=== PATIENT | female | born 1935 | race Caucasian/White ===

== ENCOUNTER 2017-03-15 13:39 | Day surgery (SDC) | payer MEDICARE, BC ==
[~2017-03-15] VITALS: Ht 152.4 cm; Wt 101.8 kg
[~2017-03-15 13:39] MED LIST: LIDOCAINE 1%/EPI 1:100,000 20 ML VIAL. ONE
[2017-03-15] MEDS ORDERED: IV RINGERS,LACTATED 1000ML 1,000 ML IV SCH (13:47)
[2017-03-15] MEDS ORDERED: FURO-69 PO (13:52)
[2017-03-15] MEDS ORDERED: POTA20TA82 PO (13:53)
[2017-03-15] MEDS ORDERED: WARF2TAB7 PO (13:53)
[2017-03-15] MEDS ORDERED: HYDR-971 PO (13:54)
[2017-03-15] MEDS ORDERED: INSU100I13 SQ (13:54)
[2017-03-15] MEDS ORDERED: CARV12.52 PO (13:55)
[2017-03-15] MEDS ORDERED: LEVO100T5 PO (13:55)
[2017-03-15] MEDS ORDERED: HYDR12.53 PO (13:55)
[2017-03-15] MEDS ORDERED: CRESTOR10 MG PO (13:56)
[2017-03-15] MEDS ORDERED: CITA10TA8 PO (13:56)
[2017-03-15] MEDS ORDERED: OMEP20TA63 PO (13:57)
[2017-03-15] MEDS ORDERED: LIDOCAINE 1% 1 ML SYRINGE. ID PRN (14:00)
[2017-03-15] MEDS ORDERED: MIDAZOLAM HCL/PF 2 MG/2 ML VIAL. IV PRN (14:00)
[2017-03-15] MEDS ORDERED: fentaNYL PF VIAL 100 MCG/2 ML VIAL IV PRN ×2 (14:00)
[2017-03-15] MEDS ORDERED: CLINDAMYCIN 600MG PREMIX 50 ML IV PRN (14:15)
[2017-03-15 14:47] LABS: BASO # 0.1 x10^3/uL (0.0-0.2); BASO % 1 % (0-3); EOS % 2 % (0-3); HEMATOCRIT 44.4 % (36.0-47.0); HEMOGLOBIN 14.6 g/dL (12.0-15.5); LYMPH # 1.8 x10^3/uL (1.0-4.8); LYMPH % 17 % (24-48); MEAN CORPUSCULAR HEMOGLOBIN 32 pg (25-35); MEAN CORPUSCULAR HGB CONC 33 g/dL (31-37); MEAN CORPUSCULAR VOLUME 97 fL (79-100); MONO % 8 % (0-9); NEUT % 73 % (31-73); PLATELET COUNT 215 x10^3/uL (140-400); RED BLOOD COUNT 4.59 x10^6/uL (3.50-5.40); RED CELL DISTRIBUTION WIDTH 14.1 % (11.5-14.5); WHITE BLOOD COUNT 10.5 x10^3/uL (4.0-11.0)
[2017-03-15 14:56] LABS: INR 2.8 (0.8-1.1); PROTHROMBIN TIME PATIENT 27.7 SEC (11.7-14.0)
[2017-03-15] MEDS ORDERED: CHLORHEXIDINE 0.12% 15 ML MOUTHWASH. SWSP ONE (15:00)
[2017-03-15] MEDS ORDERED: GELATIN SPONGE SIZE 12-7MM SPONGE. ONE (15:03)
[2017-03-15] MEDS ORDERED: BUPIVAC MPF-EPI 0.5%-1:200000 30 ML VIAL. ONE (15:03)
[2017-03-15] MEDS ORDERED: LIDOCAINE 1%/EPI 1:100,000 20 ML VIAL. ONE (15:03)
[2017-03-15 15:05] LABS: CALCIUM 9.2 mg/dL (8.5-10.1); CREATININE 1.4 mg/dL (0.6-1.0); GFR 35.9; POTASSIUM 4.3 mmol/L (3.5-5.1)
[2017-03-15] MEDS ORDERED: LIDOCAINE 2% PF Vial for OR 5 ML VIAL. ONE (16:39)
[2017-03-15] MEDS ORDERED: PROPOFOL 20 ML IV ONE ×2 (16:39→18:07)
--- NOTE | 2017-03-15 18:39 | PDOC ---
BRIEF OPERATIVE NOTE Date: March 15, 2017 Pre-Op Diagnosis DM CAD caries, non restorable teeth # 14, 18 Post-Op Diagnosis same Procedure Performed surgical extraction of #14, 18 Surgeon dinora Grain Shoveler jacques/jey Anesthesia Type: MAC Blood Loss less than 10cc IV Fluid <1L Urine Output no colón not measured Specimens Obtained teeth disposed of in biohazard Findings see dictation Complications none noted Additional Remarks none FELIPE STANLEY DMD March 15, 2017 18:39
--- NOTE | 2017-03-15 18:47 | DISCH ---
DISCHARGE INSTRUCTIONS Condition on Discharge Condition on Discharge: Stable Activity After Discharge Activity Instructions for Disc: Resume previous activity, Activity as tolerated Lifting Instructions after Dis: No heavy lifting Driving Instructions after Dis: Do not drive today Weight Bearing Status after Di: No restrictions Diet after Discharge Diet after Discharge: Full Liquid, Level II Dysph, Ground Additional Diet Restrictions: Advance as tolerated. Wound Incision Care Wound/Incision Care: Ice to area for comfort Checks after Discharge Checks after discharge: Check blood sugar, ac/hs Contacting the DRJuan Carlos after DC Call your doctor for: If your condition worsens Follow-Up Follow up with: Dr. Saldana [phone] in 30 days or sooner with complications Treatment/Equipment after DC Adaptive Equipment Issued: None Warfarin Follow-Up Warfarin Follow UP: normal warfarin dosing LIZETH,FELIPE Jensen DMD March 15, 2017 18:47
[2017-03-15 19:04] VITALS: BP 124/78
--- NOTE | 2017-03-16 12:50 | OP ---
DATE OF SURGERY: 03/15/2017 OPERATING SURGEON: lFaco Stanley DMD SERVICE: Oral maxillofacial surgery. PREOPERATIVE DIAGNOSES: She has multiple diagnoses significant for coronary artery disease, diabetes, thyroid disease, arthritis, glaucoma, history of DVT on warfarin, sleep apnea, anxiety, atrial fibrillation. She also has nonrestorable caries of teeth #14 and 18. PROCEDURES PERFORMED: Surgical extraction of #14 and 18. BRIEF HISTORY: The patient is referred to our service for extraction of these two teeth by Dr. Garcia, her general dentist. History and physical was performed. The patient consented for procedure in the operating room under local versus operating room, the patient elected to be sedated and the patient was scheduled for surgery in the [facility]. PREOPERATIVE DISCUSSION: After the history and physical was obtained in the preoperative holding area, the patient was taken to the anesthesia service to the operating suite, placed in the supine position. Pads were checked. The patient was placed in a gentle reverse Trendelenburg position to assist with airway and the patient management. She was sedated with MAC sedation in order to keep her comfortable and allow for optimum management of anxiety and dental care of her delicate health condition. DESCRIPTION OF PROCEDURE: Local anesthesia in the form of 10 mL of 0.5% Marcaine, 1:200,000 epinephrine was administered into the proposed surgical areas. Full thickness mucoperiosteal flap with a distal extension was made in the site number 14. Bone was removed with rongeurs in order to assist in removal of this tooth. Tooth was luxated, elevated and extracted and no complication without sinus exposure. Minor alveoloplasty was performed to remove all bony prominences. The bone file was used to smooth bony edges. Copious irrigation was performed. Curettage was also performed. The site was then closed with Gelfoam and 3-0 chromic gut sutures in a running locked fashion. Near primary closure was achieved. Attention was then directed to the left where site #18 was addressed with a 15 blade was used to make a distal hockey stick and a small mucoperiosteal flap full thickness, mucoperiosteal flap was elevated around the tooth, was luxated, elevated. The crown was fractured below the gumline due to significant gross caries. Also, a throat pack was utilized during the entire procedure. A rotary handpiece was used with copious irrigation. Tooth was then sectioned below the bone level and luxated, elevated and extracted. Tooth #17 was exposed to the surgical wound. This area was not manipulated. The Gelfoam has been placed in an extraction site. Two 3-0 chromic gut sutures were placed over the wound to assist in tissue advancement and closure of the wound. The wounds were then hemostatic. The oral cavity was moist and lavaged and suctioned. Gauze packs were removed and anesthesia gauze was placed in the oral cavity to assist with hemostasis. Hemostasis was controlled during surgery and the patient was then returned to the care of anesthesia where she was allowed to lighten and awaken and recover. The patient was then transported to the PACU in a stable condition. FLACO STANLEY DMD DR: Kerri JOB#: [id number] / [id number]
== END 2017-03-15 19:30 | disposition home or self-care (01) ==
LOC: SURG 13:39
PROVIDERS: ATTEND Dentist Oral and Maxillofacial Surgery
DX: K02.9 Dental caries, unspecified (principal); I25.10 Atherosclerotic heart disease of native coronary artery without angina pectoris; E07.9 Disorder of thyroid, unspecified; M19.90 Unspecified osteoarthritis, unspecified site; I48.91 Unspecified atrial fibrillation; H40.9 Unspecified glaucoma; E11.39 Type 2 diabetes mellitus with other diabetic ophthalmic complication; F41.9 Anxiety disorder, unspecified; Z88.0 Allergy status to penicillin; Z88.8 Allergy status to other drugs, medicaments and biological substances
CPT/HCPCS: 36415; 41899; 80048; 82962; 85027; 85610; J2704; J3490